=== PATIENT | male | born 1980 | race Caucasian/White ===

== ENCOUNTER 2016-07-26 07:01 | Emergency (ER) | payer SELFPAY ==
[~2016-07-26] VITALS: Ht 177.8 cm; Wt 97.5 kg
[2016-07-26] MEDS ORDERED: IV NORMAL SALINE 1000ML BAG 1,000 ML IV SCH (07:45)
[2016-07-26] MEDS ORDERED: KETOROLAC TROMETHAMINE 30 MG/ML INJ. IV ONE (08:00)
[2016-07-26 08:07] LABS: BASO # 0.1 x10^3/uL (0.0-0.2); BASO % 1 % (0-3); EOS % 2 % (0-3); HEMATOCRIT 42.4 % (39.0-53.0); HEMOGLOBIN 14.3 g/dL (13.0-17.5); LYMPH # 1.8 x10^3/uL (1.0-4.8); LYMPH % 24 % (24-48); MEAN CORPUSCULAR HEMOGLOBIN 30 pg (25-35); MEAN CORPUSCULAR HGB CONC 34 g/dL (31-37); MEAN CORPUSCULAR VOLUME 88 fL (79-100); MONO % 8 % (0-9); NEUT % 66 % (31-73); PLATELET COUNT 301 x10^3/uL (140-400); RED BLOOD COUNT 4.82 x10^6/uL (4.30-5.70); RED CELL DISTRIBUTION WIDTH 14.2 % (11.5-14.5); WHITE BLOOD COUNT 7.6 x10^3/uL (4.0-11.0)
[2016-07-26 08:20] LABS: CALCIUM 9.2 mg/dL (8.5-10.1); CREATININE 1.2 mg/dL (0.7-1.3); GFR 69.3; POTASSIUM 4.7 mmol/L (3.5-5.1)
--- NOTE | 2016-07-26 08:37 | EKG ---
[facility] [address] [place] [address] Test Date: 2016-07-26 Test Time: 07:40:34 Pat Name: PAIGE LARIOS Department: Room: Gender: M [employer]itive [employer]: : 1980 Requested By: EARL RUBI Order Number: [id number] Reading MD: Measurements Intervals Enterprise Rate: 84 P: 28 DE: 136 QRS: -1 QRSD: 90 T: 9 QT: 340 QTc: 405 Interpretive Statements SINUS RHYTHM LEFTWARD AXIS NO SPECIFIC ECG ABNORMALITIES RI6.01 No previous ECG available for comparison
[2016-07-26 08:40] LABS: ALBUMIN 3.7 g/dL (3.4-5.0); TOTAL BILIRUBIN 0.4 mg/dL (0.2-1.0); TOTAL PROTEIN 7.5 g/dL (6.4-8.2)
[2016-07-26 09:04] LABS: CKMB INDEX 0.4 % (0-4); CKMB MASS 0.5 ng/mL (0.0-3.6)
[2016-07-26] MEDS ORDERED: PRED-220 PO (09:53)
--- NOTE | 2016-07-26 09:55 | PHYS DOC ---
Past Medical History Past Medical History: Other Additional Past Medical Histor: UC Alcohol Use: None Drug Use: None Adult General Chief Complaint Chief Complaint: BLOODY STOOL HPI HPI Patient is a 36 year old male who ambulates into the ED with the complaint of bloody stool related to ulcerative colitis. Patient tells me that he has had a diagnosis of ulcerative colitis for some time. He previously saw a GI specialist , Dr. Guerra, in [facility], but he lives in this area now and also lost his insurance. 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 He has had a worsening of abdominal pain and has seen blood and mucus in his stools for the past few days. Patient tells me in the past he has been on sulfasalazine and Asacol, and also has been on prednisone, but since he lost his insurance it has been a few years since he has been on those meds. He has had colonoscopy a couple of times. States he has been to [facility] emergency Department a few times and had a short course of prednisone prescribed which did help with his symptoms. He feels strongly that this is related to his ulcerative colitis. Patient also states that since last night he has had a achy pain under his left breast. It began last evening and has been present ever since, does not come and go. He has felt a little short of breath. Also, not sure whether this is related, he has had some episodes where his left arm seems to go numb while he is seated at the table working. No pain associated with that. Patient denies fever or chills, denies nausea or vomiting. PCP none, he currently does not have insurance. Review of Systems Review of Systems Constitutional: Denies fever or chills [] Eyes: Denies change in visual acuity, redness, or eye pain [] HENT: Denies nasal congestion or sore throat [] Respiratory: Denies cough or shortness of breath [] Cardiovascular: As in history of present illness for left-sided chest pain constant since last night GI: As in history of present illness : Denies dysuria or hematuria [] Musculoskeletal: Denies back pain or joint pain [] Integument: Denies rash or skin lesions [] Neurologic: Denies headache, focal weakness or sensory changes [] Current Medications Current Medications Current Medications Medications (Trade) Dose Ordered Sig/Gale Start Time Stop Time Status Last Admin Dose Admin Ketorolac Tromethamine (Toradol) 30 mg 1X ONCE 07/26/16 08:00 07/26/16 08:04 DC 07/26/16 08:08 30 MG Sodium Chloride (Iv Sodium Chloride 0.9% 1000ml Bag) 1,000 ml @ 1,000 mls/hr Q1H 07/26/16 07:45 07/26/16 08:44 DC 07/26/16 07:52 1,000 MLS/HR Allergies Allergies Allergies Coded Allergies Type Severity Reaction Last Updated Verified No Known Drug Allergies 07/26/16 No Physical Exam Physical Exam Constitutional: Well developed, well nourished, no acute distress, non-toxic appearance. Alert, mentating normally. Heart rate 111 seated at rest. HENT: Normocephalic, atraumatic, bilateral external ears normal, nose normal. [ ] Eyes: conjunctiva normal, no discharge. [] Neck: Normal range of motion, no stridor. [] Cardiovascular:Heart rate regular rhythm, no murmur [] Lungs & Thorax: Bilateral breath sounds clear to auscultation [] Abdomen: Bowel sounds normal. Mildly distended. No bruit. Tender to palpation on the entire left side. No rebound or guarding. Tenderness is not localized more than the entire left side of the abdomen. No right lower quadrant tenderness whatsoever. Skin: Warm, dry, no erythema, no rash. [] Extremities: No tenderness, no cyanosis, no clubbing, ROM intact, no edema. [] Neurologic: Alert and oriented X 3, normal motor function, normal sensory function, no focal deficits noted. [] Current Patient Data Vital Signs Vital Signs Date Time Temp Pulse Resp B/P Pulse Ox O2 Delivery O2 Flow Rate FiO2 07/26/16 09:08 92 18 127/76 98 Room Air 07/26/16 07:09 98.0 98.0 Lab Values Laboratory Tests Test 07/26/16 07:55 White Blood Count 7.6x10^3/uL (4.0-11.0) Red Blood Count 4.82x10^6/uL (4.30-5.70) Hemoglobin 14.3g/dL (13.0-17.5) Hematocrit 42.4% (39.0-53.0) Mean Corpuscular Volume 88fL (79-100) Mean Corpuscular Hemoglobin 30pg (25-35) Mean Corpuscular Hemoglobin Concent 34g/dL (31-37) Red Cell Distribution Width 14.2% (11.5-14.5) Platelet Count 301x10^3/uL (140-400) Neutrophils (%) (Auto) 66% (31-73) Lymphocytes (%) (Auto) 24% (24-48) Monocytes (%) (Auto) 8% (0-9) Eosinophils (%) (Auto) 2% (0-3) Basophils (%) (Auto) 1% (0-3) Neutrophils # (Auto) 5.0x10^3uL (1.8-7.7) Lymphocytes # (Auto) 1.8x10^3/uL (1.0-4.8) Monocytes # (Auto) 0.6x10^3/uL (0.0-1.1) Eosinophils # (Auto) 0.1x10^3/uL (0.0-0.7) Basophils # (Auto) 0.1x10^3/uL (0.0-0.2) Erythrocyte Sedimentation Rate 14 (0-15) Sodium Level 140mmol/L (136-145) Potassium Level 4.7mmol/L (3.5-5.1) Chloride Level 103mmol/L (98-107) Carbon Dioxide Level 27mmol/L (21-32) Anion Gap 10 (6-14) Blood Urea Nitrogen 15mg/dL (8-26) Creatinine 1.2mg/dL (0.7-1.3) Estimated GFR (Cockcroft-Gault) 69.3 BUN/Creatinine Ratio 13 (6-20) Glucose Level 99mg/dL (70-99) Calcium Level 9.2mg/dL (8.5-10.1) Total Bilirubin 0.4mg/dL (0.2-1.0) Aspartate Amino Transferase (AST) 21U/L (15-37) Alanine Aminotransferase (ALT) 30U/L (16-63) Alkaline Phosphatase 50U/L (46-116) Creatine Kinase 122U/L (39-308) Creatine Kinase MB (Mass) 0.5ng/mL (0.0-3.6) Creatine Kinase MB Relative Index 0.4% (0-4) Troponin I Quantitative < 0.017ng/mL (0.000-0.055) ZF-Htt-S-Type Natriuretic Peptide 6pg/mL (0-124) Total Protein 7.5g/dL (6.4-8.2) Albumin 3.7g/dL (3.4-5.0) Albumin/Globulin Ratio 1.0 (1.0-1.7) Lipase 181U/L (73-393) Laboratory Tests 07/26/16 07:55 Laboratory Tests 07/26/16 07:55 EKG EKG 12-lead EKG read by me. Sinus rhythm. Heart rate 84. There are no acute ST or T wave changes indicative of ischemia or infarction. No STEMI. 0745 [] Radiology/Procedures Radiology/Procedures [] Course & Med Decision Making Course & Med Decision Making Pertinent Labs and Imaging studies reviewed. (See chart for details) 36-year-old male gives a history of ulcerative colitis, has not been treated by a GI specialist for a few years because he has not had insurance, history is consistent with a flareup of ulcerative colitis. Also complaining of some left sided chest pain of a nonspecific nature that has been constant since it began last night. Patient is probably a little dry with a heart rate of 111. I discussed with him labs, IV fluids. He was given some IV Toradol. He had 1 L IV normal saline and was up to the bathroom and urinated. Patient's labs are entirely within normal limits, no leukocytosis, no anemia, sedimentation rate is normal. Also cardiac enzymes are normal. I don't believe his left-sided nonspecific chest pain is cardiac since he has had it for more than 12 hours with no elevation of troponin and no EKG change. This may be related to his abdominal pain was some subdiaphragmatic irritation. I reviewed the patient's records from [facility]. The patient has been seen 4 times specifically for ulcerative colitis symptoms and given a prednisone taper in the last year and a half, specifically was seen April, September, February 2016 and May 2016. It's time a prednisone taper was prescribed. I discussed with the patient that I'm very concerned that his chronic medical problem is not being managed and he is not getting continuity of care. I urged him to see his primary GI specialist as soon as possible to have some management of his chronic ulcerative colitis. The patient told me that at his current job he expects to get insurance about the third week of August , about a month from now, and he will follow up right away with his GI specialist when he does get insurance. [] Dragon Disclaimer Dragon Disclaimer This electronic medical record was generated, in whole or in part, using a voice recognition dictation system. Departure Departure Impression: Primary Impression: Ulcerative colitis Additional Impression: Diarrhea Disposition: HOME, SELF-CARE Condition: STABLE Referrals: NO PCP (PCP) LOAN DALE MD,AMARILYS Graham MD Patient Instructions: Ulcerative Colitis Additional Instructions: As we discussed, your chronic condition of ulcerative colitis is not being well managed if you are needing 5 prescriptions for prednisone in less than 1-1/2 years. It's very important that you see a GI doctor to get regular care for this chronic condition. Drink plenty of fluids. Take a GI appointment as soon as possible. I did give you referrals to local GI doctors. Scripts Prednisone 10 Mg [id number] Mg PO DAILY PREDNISONE TAPER #22 TAB Ref 0 Take 4 tablets daily for 3 days, then 3 tablets daily for 2 days, then 2 tablets daily for 2 days, then 1 tablet daily for 2 days, then stop. Prov:EARL RUBI MD 07/26/16 Problem Qualifiers EARL RUBI MD Jul 26, 2016 09:55
[2016-07-26 10:00] VITALS: BP 125/82
== END 2016-07-26 10:15 | disposition home or self-care (01) ==
LOC: ER 07:01
DX: K51.90 Ulcerative colitis, unspecified, without complications (principal); R19.7 Diarrhea, unspecified; R06.02 Shortness of breath
CPT/HCPCS: 36415; 80053; 82553; 83690; 83880; 84484; 85027; 85651; 93005; 96361; 96374; 99285; J1885; J7030